=== PATIENT | male | born 1965 | race Hispanic/Latino ===

== ENCOUNTER 2018-07-24 13:32 | Inpatient (IN) | payer MEDICAID ==
[2018-07-24 13:46] VITALS: BMI 33.0
[2018-07-24] MEDS ORDERED: Oxycodone/Acetaminophen 5/325 mg Tab PO STA ×2 (14:07→17:40)
[2018-07-24] MEDS ORDERED: Oxycodone/Acetaminophen 5/325 mg Tab ONE ×2 (14:12→18:04)
--- NOTE | 2018-07-24 16:00 | C.PDOC ---
History Of Present Illness 53 year old male presents to the ED for evaluation of rectal pain, which began after he had a forced bowel movement two days ago. Patient denies history of hemorrhoids or prolapsed rectum. Patient denies any type of anal/rectal manip ulation or receiving anal intercourse. Time Seen by Provider: 07/24/18 14:02 Chief Complaint (Nursing): Male Genitourinary History Per: Patient History/Exam Limitations: no limitations Onset/Duration Of Symptoms: Days (2) Current Symptoms Are (Timing): Still Present Quality Of Discomfort: "Pain" Additional History Per: Patient Past Medical History Reviewed: Historical Data, Nursing Documentation, Vital Signs Vital Signs: Last Vital Signs Temp 98.6 F 07/24/18 13:36 Pulse 78 07/24/18 13:36 Resp 16 07/24/18 13:36 BP 122/80 07/24/18 13:36 Pulse Ox 98 07/24/18 13:36 - Medical History PMH: HTN, Hypercholesterolemia Surgical History: No Surg Hx Family History: States: Unknown Family Hx - Social History Hx Alcohol Use: No Hx Substance Use: No - Immunization History Hx Tetanus Toxoid Vaccination: No Hx Influenza Vaccination: No Hx Pneumococcal Vaccination: No Review Of Systems Gastrointestinal: Positive for: Rectal Pain Physical Exam - Physical Exam Appears: Non-toxic, No Acute Distress Skin: Normal Color, Warm, Dry Head: Atraumatic, Normacephalic Eye(s): bilateral: Normal Inspection Oral Mucosa: Moist Neck: Supple Chest: Symmetrical, No Deformity, No Tenderness Cardiovascular: Rhythm Regular Respiratory: Normal Breath Sounds Rectal: Other (prolapsed rectum by 2cm, pouting and tender ) Extremity: Normal ROM, Capillary Refill (less than 2 seconds ) Neurological/Psych: Oriented x3, Normal Speech, Normal Cognition ED Course And Treatment - Laboratory Results Result Diagrams: 07/27/18 11:10 07/27/18 11:10 O2 Sat by Pulse Oximetry: 98 (on RA) Pulse Ox Interpretation: Normal Progress Note: Percocet PO given. Medical Decision Making Medical Decision Making: failed digital reposition of Rectum in ED x 2 Adm for surgical intervention Disposition Doctor Will See Patient In The: Hospital Counseled Patient/Family Regarding: Studies Performed, Diagnosis - Disposition Disposition: HOSPITALIZED Disposition Time: 16:00 Condition: GOOD - Clinical Impression Clinical Impression: Rectal prolapse - Scribe Statement The provider has reviewed the documentation as recorded by the Scribe (Marysol Solomon) Provider Attestation: All medical record entries made by the Scribe were at my direction and person ally dictated by me. I have reviewed the chart and agree that the record accurately reflects my personal performance of the history, physical exam, medical decision making, and the department course for this patient. I have also personally directed, reviewed, and agree with the discharge instructions and disposition.
[2018-07-24 18:18] LABS: BASO # 0.1 K/uL (0.0-0.2); BASO % 1.4 % (0.0-2.0); EOS # 0.1 K/uL (0.0-0.7); EOS % 0.9 % (0.0-4.0); HEMOGLOBIN 14.1 g/dL (12.0-18.0); LYMPH # 1.5 K/uL (1.0-4.3); LYMPH % 19.7 % (20.0-40.0); MEAN CELL VOLUME 90.8 fL (80.0-94.0); MEAN CORPUSCULAR HEMOGLOBIN 30.8 pg (27.0-31.0); MEAN PLATELET VOLUME 8.7 fL (7.2-11.7); MONO # 0.8 K/uL (0.0-0.8); MONO % 10.4 % (0.0-10.0); NEUT # 5.3 K/uL (1.8-7.0); NEUT % 67.6 % (50.0-75.0); RBC 4.58 Mil/uL (4.40-5.90); RED CELL DISTRIBUTION WIDTH 13.8 % (11.5-14.5); WHITE BLOOD COUNT 7.8 K/uL (4.8-10.8)
--- NOTE | 2018-07-24 18:18 | CP.PCM.CON ---
<Sena Israel - Last Filed: 07/24/18 18:31> History of Present Illness - History of Present Illness History of Present Illness: This is a surgical consult note for Dr. Granado for hemorrhoidectomy. Pt is a 53M with PMHx with HTN and hypercholesterolemia that presents with prolapsed hemorrhoid. He says the problem began 2 days ago when he was straining on the toilet. He felt the sudden pain and he says it has been a constant 07/05. He denies radiation of pain and prior episode. He tried preparation H but says it did not help. Pt says he had been constipated for 3 days prior to the prolapse. He denies F/C, N/V, SOB, CP, headache, and numbness/tingling. PMHx: HTN, hypercholesterolemia SxHx: Heart catherization (Jun 2018) FamHx: grandmother - DM, father - lung and skin cancer ( at 54) SocHx: denies tobacco, alcohol, and drug use. Allergies: NKDA Review of Systems - Constitutional Constitutional: absent: Chills, Fever, Headache - Cardiovascular Cardiovascular: absent: Chest Pain, Dyspnea - Gastrointestinal Gastrointestinal: Constipation, Diarrhea. absent: Nausea, Vomiting Additional comments: After the prolapse, the pt reported having a bout of diarrhea. Past Patient History - Past Social History Smoking Status: Never Smoked - CARDIAC Hx Hypercholesterolemia: Yes Hx Hypertension: Yes - PSYCHIATRIC Hx Substance Use: No - SURGICAL HISTORY Hx Surgeries: No - ANESTHESIA Hx Anesthesia: No Meds Allergies/Adverse Reactions: Allergies Allergy/AdvReac Type Severity Reaction Status Date / Time No Known Allergies Allergy Unverified 07/24/18 13:45 Physical Exam - Constitutional Appears: Well - Head Exam Head Exam: NORMAL INSPECTION - Eye Exam Eye Exam: EOMI, Normal appearance, PERRL Pupil Exam: NORMAL ACCOMODATION, PERRL - ENT Exam ENT Exam: Mucous Membranes Moist, Normal Exam - Neck Exam Neck exam: Positive for: Normal Inspection - Respiratory Exam Respiratory Exam: NORMAL BREATHING PATTERN - Cardiovascular Exam Cardiovascular Exam: REGULAR RHYTHM - GI/Abdominal Exam GI & Abdominal Exam: Normal Bowel Sounds - Rectal Exam Rectal Exam: Hemorrhoids Additional comments: Non-reducing hemorrhoids. LL colume is thrombosed [id number]. R anterior [id number] , R posterior colume TTP. [id number] - Extremities Exam Extremities exam: Positive for: normal inspection - Back Exam Back exam: NORMAL INSPECTION - Neurological Exam Neurological exam: Alert, CN II-XII Intact, Normal Gait, Oriented x3, Reflexes Normal - Psychiatric Exam Psychiatric exam: Normal Affect, Normal Mood - Skin Skin Exam: Dry, Intact, Normal Color, Warm Results - Vital Signs Recent Vital Signs: Last Vital Signs Temp 98.0 F 07/24/18 17:22 Pulse 62 07/24/18 17:22 Resp 18 07/24/18 17:22 BP 127/76 07/24/18 17:22 Pulse Ox 98 07/24/18 17:22 - Labs Result Diagrams: 07/24/18 18:15 Assessment & Plan - Assessment and Plan (Free Text) Assessment: partially thrombosed prolapsed hemorrhoids. -OR tomorrow for hemorrhoidectomy -NPO -IVF DW Dr. Granado <Dickson Granado - Last Filed: 07/30/18 16:14> Results - Vital Signs Recent Vital Signs: Last Vital Signs Temp 98.2 F 07/27/18 15:30 Pulse 80 07/27/18 15:30 Resp 20 07/27/18 15:30 BP 121/78 07/27/18 15:30 Pulse Ox 96 07/27/18 15:30 - Labs Result Diagrams: 07/27/18 11:10 07/27/18 11:10 Attending/Attestation - Attestation I have personally seen and examined this patient.: Yes I have fully participated in the care of the patient.: Yes I have reviewed all pertinent clinical information: Yes Notes (Text): Pt was seen and examined at bedside Agree with above note and assessment 53 year old male with rectal bleeding and prolapsed hemorrhoids Rectal: Grade 4 Hemorrhoids with ulceration and thrombosis Labs and Radiology reviewed Ass: Grade 4 Hemorrhoids Plan: Lidocaine 5 % localy Sitz bath Stool softner Medical clearance for Hemorrhoidectomy Plan d.w pt in detail. Risk and benefit explained in detail.
[2018-07-24 18:27] LABS: INR 1.2; PROTHROMBIN TIME 13.1 SECONDS (9.7-12.2)
[2018-07-24] MEDS ORDERED: HYDROmorphone 0.5 mg/0.5 ml ISec IVP PRN (18:35)
[2018-07-24 18:44] LABS: BLOOD UREA NITROGEN 15 mg/dL (9-20); CALCIUM 8.9 mg/dl (8.6-10.4); GFR NON-AFRICAN AMERICAN > 60
[2018-07-24] MEDS ORDERED: Sodium Chloride 0.9% 1,000 ML IV SCH (18:45)
[2018-07-24 18:52] LABS: ALB/GLOB RATIO 1.5 (1.0-2.1); ALBUMIN 4.4 g/dL (3.5-5.0); ALT/SGPT 39 U/L (21-72); AST/SGOT 62 U/L (17-59)
[2018-07-24] MEDS: Sodium Chloride 0.9% 1,000 ML IV SCH (22:00)
[2018-07-24] MEDS: Lidocaine 5% Oint(35 gm) TOP SCH (22:01)
--- NOTE | 2018-07-24 22:09 | CP.PCM.HP ---
Past Patient History - Past Social History Smoking Status: Never Smoked - CARDIAC Hx Hypercholesterolemia: Yes Hx Hypertension: Yes - PSYCHIATRIC Hx Substance Use: No - SURGICAL HISTORY Hx Surgeries: No - ANESTHESIA Hx Anesthesia: No Meds Allergies/Adverse Reactions: Allergies Allergy/AdvReac Type Severity Reaction Status Date / Time No Known Allergies Allergy Unverified 07/24/18 13:45 Results - Vital Signs Recent Vital Signs: Last Vital Signs Temp 98.3 F 07/24/18 18:44 Pulse 55 L 07/24/18 18:44 Resp 18 07/24/18 18:44 BP 127/80 07/24/18 18:44 Pulse Ox 98 07/24/18 18:44 - Labs Result Diagrams: 07/24/18 18:15 07/24/18 18:15 Labs: Laboratory Results - last 24 hr 07/24/18 07/24/18 07/24/18 18:15 18:15 18:15 WBC 7.8 RBC 4.58 Hgb 14.1 Hct 41.6 MCV 90.8 MCH 30.8 MCHC 34.0 RDW 13.8 Plt Count 155 MPV 8.7 Neut % (Auto) 67.6 Lymph % (Auto) 19.7 L Loup % (Auto) 10.4 H Eos % (Auto) 0.9 Baso % (Auto) 1.4 Neut # (Auto) 5.3 Lymph # (Auto) 1.5 Loup # (Auto) 0.8 Eos # (Auto) 0.1 Baso # (Auto) 0.1 PT 13.1 H INR 1.2 APTT 27 Sodium 139 Potassium 4.9 Chloride 102 Carbon Dioxide 25 Anion Gap 17 BUN 15 Creatinine 0.9 Est GFR ( Amer) > 60 Est GFR (Non-Af Amer) > 60 Random Glucose 97 Calcium 8.9 Total Bilirubin 1.5 H AST 62 H ALT 39 Alkaline Phosphatase 62 Total Protein 7.4 Albumin 4.4 Globulin 2.9 Albumin/Globulin Ratio 1.5
[2018-07-25] MEDS: Lidocaine 5% Oint(35 gm) TOP SCH ×6 (01:45→21:21)
[2018-07-25] MEDS: Sodium Chloride 0.9% 1,000 ML IV SCH (03:15)
[2018-07-25 07:18] LABS: HEMOGLOBIN 13.8 g/dL (12.0-18.0); MEAN CELL VOLUME 90.9 fL (80.0-94.0); MEAN CORPUSCULAR HEMOGLOBIN 31.6 pg (27.0-31.0); MEAN CORPUSCULAR HGB CONC 34.8 g/dL (33.0-37.0); MEAN PLATELET VOLUME 9.2 fL (7.2-11.7); RBC 4.35 Mil/uL (4.40-5.90); RED CELL DISTRIBUTION WIDTH 13.9 % (11.5-14.5)
--- NOTE | 2018-07-25 08:06 | CP.PCM.PN ---
<Brendon Ann - Last Filed: 07/25/18 08:04> Subjective - Date & Time of Evaluation Date of Evaluation: 07/25/18 Time of Evaluation: 08:04 - Subjective Subjective: Gen Surg: Dr Granado Pt S&E. CAITLYNEO. Resting comfortably. Pain controlled. Plan for repair tomorrow. No BM since admission Objective - Vital Signs/Intake and Output Vital Signs (last 24 hours): Temp Pulse Resp BP Pulse Ox 98.5 F 58 L 20 104/60 97 07/25/18 07:59 07/25/18 07:59 07/25/18 07:59 07/25/18 07:59 07/25/18 07:59 Intake and Output: 07/25/18 07/25/18 06:59 18:59 Intake Total 1380 Balance 1380 - Medications Medications: Current Medications Enoxaparin Sodium (Lovenox) 40 mg SC DAILY [facility] Hydromorphone HCl (Dilaudid) 0.5 mg IVP Q4H PRN PRN Reason: Pain, moderate (4-7) Sodium Chloride (Sodium Chloride 0.9%) 1,000 mls @ 135 mls/hr IV .Q7H25M [facility] Last Admin: 07/25/18 03:15 Dose: 135 mls/hr Influenza Virus Vaccine (Fluzone Quad [id number]) 60 mcg IM .ONCE ONE Stop: 07/26/18 08:01 Lidocaine (Lidocaine 5%) 0 gm TOP Q4H [facility] Last Admin: 07/25/18 05:43 Dose: 1 applic Lisinopril (Zestril) 10 mg PO DAILY [facility] Metoprolol Succinate (Toprol Xl) 25 mg PO DAILY [facility] Pneumococcal Polyvalent Vaccine (Pneumovax 23 Vaccine) 0.5 ml IM .ONCE ONE Stop: 07/26/18 08:01 - Labs Labs: 07/25/18 07:10 07/24/18 18:15 PT 13.1 SECONDS (9.7-12.2) H 07/24/18 18:15 INR 1.2 07/24/18 18:15 APTT 27 SECONDS (21-34) 07/24/18 18:15 - Constitutional Appears: Non-toxic, No Acute Distress - ENT Exam ENT Exam: Mucous Membranes Moist - Respiratory Exam Respiratory Exam: absent: Respiratory Distress - Cardiovascular Exam Cardiovascular Exam: REGULAR RHYTHM. absent: Tachycardia - GI/Abdominal Exam GI & Abdominal Exam: Soft. absent: Distended, Tenderness - Rectal Exam Rectal Exam: Hemorrhoids Additional comments: 3 distinct piles, minimal thrombosis - Neurological Exam Neurological Exam: Alert, Awake, Oriented x3 Assessment and Plan - Assessment and Plan (Free Text) Assessment: 53M with prolapsed hemorrhoids Plan: plan for repair tomorrow in [place] NPO @ [place] hold a/c tomorrow stool softeners d/w Dr Vannesa Ann, PGY4 <Dickson Granado B - Last Filed: 07/30/18 16:16> Objective - Vital Signs/Intake and Output Vital Signs (last 24 hours): Temp Pulse Resp BP Pulse Ox 98.2 F 80 20 121/78 96 07/27/18 15:30 07/27/18 15:30 07/27/18 15:30 07/27/18 15:30 07/27/18 15:30 - Labs Labs: 07/27/18 11:10 07/27/18 11:10 PT 13.1 SECONDS (9.7-12.2) H 07/24/18 18:15 INR 1.2 07/24/18 18:15 APTT 27 SECONDS (21-34) 07/24/18 18:15 Attending/Attestation - Attestation I have personally seen and examined this patient.: Yes I have fully participated in the care of the patient.: Yes I have reviewed all pertinent clinical information, including history, physical exam and plan: Yes Notes (Text): Pt was seen and examined at bedside Agree with above note and assessment Pt with prolapsed hemorrhoids OR for Hemorrhoidectomy tomorrow NPO, IVF Consent Plan d.w pt in detail. Risk and benefit explained in detail.
[2018-07-25 08:29] LABS: ALB/GLOB RATIO 1.5 (1.0-2.1); ALBUMIN 3.8 g/dL (3.5-5.0); ALT/SGPT 45 U/L (21-72); AST/SGOT 41 U/L (17-59); BLOOD UREA NITROGEN 17 mg/dL (9-20); CALCIUM 8.5 mg/dl (8.6-10.4); GFR NON-AFRICAN AMERICAN > 60
--- NOTE | 2018-07-25 09:35 | RAD ---
Date of service: 07/25/2018 HISTORY: pre-op eval COMPARISON: 11/02/2012 FINDINGS: LUNGS: Interval triangular low-density opacity at the right cardio phrenic junction-medial right lung base noted this may represent a prominent fat pad. However it is not appreciated as such on prior study. Consider PA and lateral view further clarification. Elsewhere lungs appear clear. PLEURA: No significant pleural effusion identified, no pneumothorax apparent. CARDIOVASCULAR: No aortic atherosclerotic calcification present. Normal cardiac size. No pulmonary vascular congestion. OSSEOUS STRUCTURES: No significant abnormalities. VISUALIZED UPPER ABDOMEN: Normal. OTHER FINDINGS: None. IMPRESSION: Interval triangular low-density opacity-right cardio phrenic junction-possible prominent cardiophrenic fat pad here. As this is not appreciated as such on the prior study, consider follow-up PA and lateral view for clarification.
[2018-07-25] MEDS: Sodium Chloride 0.45% 1,000 ML IV SCH ×2 (09:50→14:23)
[2018-07-25] MEDS ORDERED: Enoxaparin 40 mg Syringe SC SCH ×2 (10:00)
[2018-07-25] MEDS ORDERED: Metoprolol Succinate 25 mg XL Tab PO SCH (10:00)
--- NOTE | 2018-07-25 10:21 | HP ---
CHIEF COMPLAINT: Rectal mass. HISTORY OF PRESENT ILLNESS: This is 53-year-old male with history of hypertension and hyperlipidemia. He is compliant with his diet, medication, and followup. He had a cardiac catheterization done earlier this year, which was benign. He is compliant with his diet, medication, and followup, and he has been straining with his stools, and this morning, he pushed his stool hard and he felt a large lump in his rectum. (00:34) and he was hospitalized. He denies any rectal bleeding, melena, or hematochezia. He denies any history of hemoptysis or hematemesis. He denies any polyuria, polydipsia, or polyphagia. He denies any hematuria or pyuria. He denies any sneezing, itchy eyes, or itchy nose. There is no history of trauma, fall, or loss of consciousness. No history of seizure-like activity. PAST MEDICAL HISTORY: Hypertension and hyperlipidemia. SURGICAL HISTORY: Cardiac cath earlier this month, negative. FAMILY HISTORY: Grandmother, diabetes. Father, lung and skin cancer. SOCIAL HISTORY: He denies any smoking or drinking. ALLERGIES: UNKNOWN ALLERGY. CURRENT MEDICATIONS: At home, he is on metoprolol, aspirin, and Zestoretic. PHYSICAL EXAMINATION: GENERAL: A middle-aged male in no acute distress. VITAL SIGNS: Blood pressure 127/80, pulse 55, respiratory rate 18, and temperature 98.3. SKIN: No bruising. No purpura. No petechia. Has tattoo. HEENT: Atraumatic, normocephalic. Negative pallor. Negative jaundice. Extraocular movements are intact. NECK: Supple. No JVD. No lymph node. No thyromegaly. CHEST WALL: Bilateral symmetrical expansion. LUNGS: Clear. No rales. No rhonchi. CARDIOVASCULAR SYSTEM: S1, S2 regular. . RECTAL: Rectal mass which is nonbleeding. CENTRAL NERVOUS SYSTEM: Awake, alert, oriented x3. ASSESSMENT: 1. Rectal mass, etiology unclear. 2. Hypertension. 3. Hyperlipidemia. PLAN: Admit. Detailed orders written. Seen and examined. Chun Fernandez MD
--- NOTE | 2018-07-25 12:23 | CARD ---
APPROVED REPORT Date of service: 07/24/2018 EKG Measurement Heart [id number] [id number] <Conclusion> Normal sinus rhythm Normal ECG
--- NOTE | 2018-07-25 22:29 | CP.PCM.PN ---
Subjective - Subjective Subjective: dictated Objective - Vital Signs/Intake and Output Vital Signs (last 24 hours): Temp Pulse Resp BP Pulse Ox 98 F 53 L 20 126/68 97 07/25/18 15:49 07/25/18 15:49 07/25/18 15:49 07/25/18 15:49 07/25/18 15:49 Intake and Output: 07/25/18 07/26/18 18:59 06:59 Intake Total 1380 Balance 1380 - Medications Medications: Current Medications Docusate Sodium (Colace) 100 mg PO BID [facility] Last Admin: 07/25/18 17:32 Dose: 100 mg Enoxaparin Sodium (Lovenox) 40 mg SC DAILY [facility] Last Admin: 07/25/18 09:53 Dose: 40 mg Hydromorphone HCl (Dilaudid) 0.5 mg IVP Q4H PRN PRN Reason: Pain, moderate (4-7) Sodium Chloride (Sodium Chloride 0.45%) 1,000 mls @ 50 mls/hr IV .Q20H [facility] Last Admin: 07/25/18 14:23 Dose: 50 mls/hr Cefazolin Sodium 500 mg/ (Sodium Chloride) 50 mls @ 100 mls/hr IVPB Q8H [facility]; Protocol Last Admin: 07/25/18 21:11 Dose: 100 mls/hr Influenza Virus Vaccine (Fluzone Quad [id number]) 60 mcg IM .ONCE ONE Stop: 07/26/18 08:01 Lactulose (Enulose) 20 gm PO HS [facility] Last Admin: 07/25/18 21:17 Dose: 20 gm Lidocaine (Lidocaine 5%) 0 gm TOP Q4H [facility] Last Admin: 07/25/18 21:21 Dose: 1 applic Lisinopril (Zestril) 10 mg PO DAILY [facility] Pneumococcal Polyvalent Vaccine (Pneumovax 23 Vaccine) 0.5 ml IM .ONCE ONE Stop: 07/26/18 08:01 - Labs Labs: 07/25/18 07:10 07/25/18 07:10 PT 13.1 SECONDS (9.7-12.2) H 07/24/18 18:15 INR 1.2 07/24/18 18:15 APTT 27 SECONDS (21-34) 07/24/18 18:15
[2018-07-26] MEDS: Lidocaine 5% Oint(35 gm) TOP SCH ×6 (01:45→20:50)
--- NOTE | 2018-07-26 02:53 | PN ---
DATE: 07/25/2018 SUBJECTIVE: The patient, Ho Flowers, is medically stable. PHYSICAL EXAMINATION: VITAL SIGNS: Blood pressure 126/68, pulse 53, respiratory rate 20, and temperature 98. LUNGS: Clear. CVS: S1 and S2, regular. ABDOMEN: Soft. ASSESSMENT: 1. Hemorrhoid. 2. Hypertension. PLAN: Medically stable for OR in a.m. Chun Fernandez MD
[2018-07-26] MEDS: Sodium Chloride 0.45% 1,000 ML IV SCH (04:15)
[2018-07-26] MEDS ORDERED: Pneumococcal 23-Valent Vaccine IM ONE (08:00)
[2018-07-26] MEDS ORDERED: Influenza Vaccine 60 MCG/0.5 ML SYR (3 yr & up) IM ONE (08:00)
[2018-07-26] MEDS ORDERED: Enoxaparin 40 mg Syringe SC SCH (10:00)
[2018-07-26] MEDS ORDERED: Propofol 10 mg/ml Inj (20 ML) ONE (11:35)
[2018-07-26] MEDS ORDERED: Midazolam 2 MG/2 ML VIAL ONE (11:35)
[2018-07-26] MEDS ORDERED: Rocuronium 10 mg/ml (5 ml) ONE (11:37)
[2018-07-26] MEDS ORDERED: Lidocaine/Epinephrine 1% 1:100000 10 ML IJ ONE (11:49)
[2018-07-26] MEDS ORDERED: Bupivacaine 0.25% 20 ML INJ IJ ONE (11:49)
[2018-07-26] MEDS ORDERED: ceFAZolin IV 1 gm in Dextrose 1 GM/50 ML BAG IVPB ONE ×2 (12:05→13:22)
[2018-07-26] MEDS ORDERED: Neostigmine Methylsulfate 3mg/3ml Syringe IV ONE (13:19)
[2018-07-26] MEDS ORDERED: HYDROmorphone 0.5 mg/0.5 ml ISec IVP PRN (13:46)
--- NOTE | 2018-07-26 13:51 | PCM.SURG1 ---
Surgeon's Initial Post Op Note - Surgeon's Notes Surgeon: Dr[facility] Attendant: MYLES Berrios; Lydia Rcihard, PGY2; Carola Ramos OMS3 Type of Anesthesia: General Endo, Local Pre-Operative Diagnosis: thrombosed hemorrhoids Operative Findings: large, thrombosed hemorrhoids in 2 columns Post-Operative Diagnosis: same Operation Performed: 2 column hemorrhoidectomy, Examination under anesthesia Specimen/Specimens Removed: right lateral hemorroid and left lateral hemorrhoid Estimated Blood Loss: EBL {In ML}: 20 Drains Used: No Drains Post-Op Condition: Fair Date of Surgery/Procedure: 07/26/18 Time of Surgery/Procedure: 12:00
[2018-07-26] MEDS: HYDROmorphone 0.5 mg/0.5 ml ISec IVP PRN ×2 (14:12→14:30)
[2018-07-26] MEDS: metroNIDAZOLE IV 500 mg/100 ml 500 MG/100 ML BAG IVPB SCH ×2 (14:43→22:12)
[2018-07-26] MEDS ORDERED: Lactated Ringer's 1,000 ML IV ONE (15:00)
[2018-07-26] MEDS: POLYETHYLENE GLYCOL 3350 17 GM/Dose PACKET PO SCH (17:30)
--- NOTE | 2018-07-26 21:32 | CP.PCM.PN ---
Subjective - Subjective Subjective: dictated Objective - Vital Signs/Intake and Output Vital Signs (last 24 hours): Temp Pulse Resp BP Pulse Ox 98.6 F 62 12 151/86 H 100 07/26/18 15:15 07/26/18 15:15 07/26/18 15:15 07/26/18 15:15 07/26/18 15:15 Intake and Output: 07/26/18 07/27/18 18:59 06:59 Intake Total 1375 Balance 1375 - Medications Medications: Current Medications Acetaminophen (Tylenol 325mg Tab) 650 mg PO Q6 [facility] Last Admin: 07/26/18 17:26 Dose: 650 mg Docusate Sodium (Colace) 100 mg PO TID [facility] Last Admin: 07/26/18 17:26 Dose: 100 mg Enoxaparin Sodium (Lovenox) 40 mg SC DAILY [facility] Last Admin: 07/25/18 09:53 Dose: 40 mg Hydromorphone HCl (Dilaudid) 0.5 mg IVP Q4H PRN PRN Reason: Pain, severe (8-10) Stop: 07/27/18 06:00 Cefazolin Sodium 500 mg/ (Sodium Chloride) 50 mls @ 100 mls/hr IVPB Q8H [facility]; Protocol Last Admin: 07/26/18 19:28 Dose: 100 mls/hr Metronidazole (Flagyl) 500 mg in 100 mls @ 100 mls/hr IVPB Q8H [facility]; Protocol Last Admin: 07/26/18 14:43 Dose: 100 mls Lactulose (Enulose) 20 gm PO HS PRN PRN Reason: Constipation Lidocaine (Lidocaine 5%) 0 gm TOP Q4H [facility] Last Admin: 07/26/18 20:50 Dose: Not Given Lisinopril (Zestril) 10 mg PO DAILY [facility] Last Admin: 07/26/18 10:03 Dose: Not Given Polyethylene Glycol (Miralax) 17 gm PO BID [facility] Last Admin: 07/26/18 17:30 Dose: 17 gm Tramadol HCl (Ultram) 50 mg PO TID PRN PRN Reason: Pain, moderate (4-7) - Labs Labs: 07/25/18 07:10 07/25/18 07:10 PT 13.1 SECONDS (9.7-12.2) H 07/24/18 18:15 INR 1.2 07/24/18 18:15 APTT 27 SECONDS (21-34) 07/24/18 18:15
[2018-07-27 01:02] VITALS: RESP 20
[2018-07-27] MEDS: Lidocaine 5% Oint(35 gm) TOP SCH ×2 (01:45→06:00)
--- NOTE | 2018-07-27 02:44 | PN ---
DATE: 07/26/2018 SUBJECTIVE: The patient, Lionel, is postop. He has urinary retention, and I will do a straight cath on him. Other than that, he is feeling better. PHYSICAL EXAMINATION: VITAL SIGNS: Blood pressure 151/86, pulse 62, respiratory rate 12, and temperature 98.6. LUNGS: Clear. CARDIOVASCULAR SYSTEM: S1, S2 regular. ABDOMEN: Soft. ASSESSMENT: 1. Status post hemorrhoidectomy. 2. Hypertension. 3. Postoperative urinary retention. PLAN: Straight cath. Monitor the patient. Chun Fernandez MD
[2018-07-27] MEDS: metroNIDAZOLE IV 500 mg/100 ml 500 MG/100 ML BAG IVPB SCH ×2 (06:00→14:18)
[2018-07-27] MEDS: POLYETHYLENE GLYCOL 3350 17 GM/Dose PACKET PO SCH (09:30)
--- NOTE | 2018-07-27 09:40 | CP.PCM.PN ---
<Lydia Richard - Last Filed: 07/27/18 10:41> Subjective - Date & Time of Evaluation Date of Evaluation: 07/27/18 Time of Evaluation: 06:50 - Subjective Subjective: General surgery progress note for Dr. Granado pt seen and examined at bedside this AM. Pt had urinary retention after the operation and had a straight catheter placed at bedside last night. Patient was able to pass small amounts of urine overnight but had a large amount of retained urine this AM as well and a straight cath produced 900cc's of urine. Patient has some rectal pain, but denies any fevers, chills, or abdominal pain Objective - Vital Signs/Intake and Output Vital Signs (last 24 hours): Temp Pulse Resp BP Pulse Ox 98.5 F 62 20 126/76 96 07/27/18 07:27 07/27/18 07:27 07/27/18 07:27 07/27/18 07:27 07/27/18 07:27 Intake and Output: 07/27/18 07/27/18 06:59 18:59 Intake Total 1300 650 Output Total 1500 1150 Balance -200 -500 - Medications Medications: Current Medications Acetaminophen (Tylenol 325mg Tab) 650 mg PO Q6 PRN PRN Reason: Pain, moderate (4-7) Docusate Sodium (Colace) 100 mg PO TID [facility] Last Admin: 07/27/18 09:31 Dose: 100 mg Enoxaparin Sodium (Lovenox) 40 mg SC DAILY [facility] Last Admin: 07/25/18 09:53 Dose: 40 mg Cefazolin Sodium 500 mg/ (Sodium Chloride) 50 mls @ 100 mls/hr IVPB Q8H [facility]; Protocol Last Admin: 07/27/18 02:30 Dose: 100 mls/hr Metronidazole (Flagyl) 500 mg in 100 mls @ 100 mls/hr IVPB Q8H [facility]; Protocol Last Admin: 07/27/18 06:00 Dose: 100 mls/hr Lactulose (Enulose) 20 gm PO HS PRN PRN Reason: Constipation Lidocaine (Lidocaine 5%) 0 gm TOP Q4H [facility] Last Admin: 07/27/18 06:00 Dose: Not Given Lisinopril (Zestril) 10 mg PO DAILY [facility] Last Admin: 07/27/18 09:31 Dose: 10 mg Polyethylene Glycol (Miralax) 17 gm PO BID [facility] Last Admin: 07/27/18 09:30 Dose: 17 gm Tamsulosin HCl (Flomax) 0.4 mg PO DAILY [facility] Tramadol HCl (Ultram) 50 mg PO TID PRN PRN Reason: Pain, severe (8-10) - Labs Labs: 07/25/18 07:10 07/25/18 07:10 PT 13.1 SECONDS (9.7-12.2) H 07/24/18 18:15 INR 1.2 07/24/18 18:15 APTT 27 SECONDS (21-34) 07/24/18 18:15 - Constitutional Appears: Well, Non-toxic, No Acute Distress - Head Exam Head Exam: ATRAUMATIC, NORMOCEPHALIC - Eye Exam Eye Exam: Normal appearance. absent: Conjunctival injection, Scleral icterus - ENT Exam ENT Exam: Mucous Membranes Moist, Normal Oropharynx - Respiratory Exam Respiratory Exam: NORMAL BREATHING PATTERN. absent: Accessory Muscle Use, Respiratory Distress - Cardiovascular Exam Cardiovascular Exam: RRR - GI/Abdominal Exam GI & Abdominal Exam: Soft. absent: Distended - Rectal Exam Additional comments: surgical incisions well approximated with sutures, no active bleeding or drainage, no erythema - Extremities Exam Extremities Exam: absent: Calf Tenderness, Pedal Edema, Tenderness - Neurological Exam Neurological Exam: Alert, Awake, Oriented x3 - Psychiatric Exam Psychiatric exam: Normal Affect, Normal Mood - Skin Skin Exam: Dry, Normal Color, Warm Assessment and Plan - Assessment and Plan (Free Text) Assessment: 53M POD#1 s/p hemorrhoidectomy Plan: Continue triple stool softener regimen Continue full liquid diet for a week Continue PO pain medication as needed Encourage ambulation Continue antibiotics Administered flomax this AM--will monitor UOP this AM. If patient has persistent retention may consider Urology consult Will continue to follow Discussed with Dr. Vannesa Richard, PGY2 <Dickson Granado - Last Filed: 07/30/18 16:17> Objective - Vital Signs/Intake and Output Vital Signs (last 24 hours): Temp Pulse Resp BP Pulse Ox 98.2 F 80 20 121/78 96 07/27/18 15:30 07/27/18 15:30 07/27/18 15:30 07/27/18 15:30 07/27/18 15:30 - Labs Labs: 07/27/18 11:10 07/27/18 11:10 PT 13.1 SECONDS (9.7-12.2) H 07/24/18 18:15 INR 1.2 07/24/18 18:15 APTT 27 SECONDS (21-34) 07/24/18 18:15 Attending/Attestation - Attestation I have personally seen and examined this patient.: Yes I have fully participated in the care of the patient.: Yes I have reviewed all pertinent clinical information, including history, physical exam and plan: Yes Notes (Text): Pt was seen and examined at bedside Agree with above note and assessment Pt is s/p Hemorrhoidectomy Passing urine now Start Flomax Local wound care DC plan C.w stool softner Plan d.w pt in detail. Risk and benefit explained in detail.
[2018-07-27 11:21] LABS: BASO % 0.4 % (0.0-2.0); EOS # 0.1 K/uL (0.0-0.7); EOS % 0.8 % (0.0-4.0); HEMOGLOBIN 13.3 g/dL (12.0-18.0); LYMPH # 1.2 K/uL (1.0-4.3); LYMPH % 17.8 % (20.0-40.0); MEAN CELL VOLUME 90.9 fL (80.0-94.0); MEAN CORPUSCULAR HEMOGLOBIN 31.2 pg (27.0-31.0); MEAN CORPUSCULAR HGB CONC 34.4 g/dL (33.0-37.0); MEAN PLATELET VOLUME 9.2 fL (7.2-11.7); MONO # 0.6 K/uL (0.0-0.8); MONO % 9.1 % (0.0-10.0); NEUT # 4.7 K/uL (1.8-7.0); NEUT % 71.9 % (50.0-75.0); RBC 4.27 Mil/uL (4.40-5.90); RED CELL DISTRIBUTION WIDTH 14.1 % (11.5-14.5); WHITE BLOOD COUNT 6.5 K/uL (4.8-10.8)
[2018-07-27 11:36] LABS: BLOOD UREA NITROGEN 8 mg/dL (9-20); CALCIUM 8.8 mg/dl (8.6-10.4); GFR NON-AFRICAN AMERICAN > 60
[2018-07-27] MEDS ORDERED: Potassium Chloride 20 mEq ER Tab PO ONE (14:00)
[2018-07-27 15:59] VITALS: BP 121/78; PULSE 80; TEMP 98.2
--- NOTE | 2018-07-27 16:47 | CP.PCM.PN ---
Subjective - Date & Time of Evaluation Date of Evaluation: 07/27/18 Time of Evaluation: 11:00 - Subjective Subjective: alert and orientedx3, no acute pain or bleeding. Objective - Vital Signs/Intake and Output Vital Signs (last 24 hours): Temp Pulse Resp BP Pulse Ox 98.2 F 80 20 121/78 96 07/27/18 15:30 07/27/18 15:30 07/27/18 15:30 07/27/18 15:30 07/27/18 15:30 Intake and Output: 07/27/18 07/27/18 06:59 18:59 Intake Total 1300 1210 Output Total 1500 1150 Balance -200 60 - Labs Labs: 07/27/18 11:10 07/27/18 11:10 PT 13.1 SECONDS (9.7-12.2) H 07/24/18 18:15 INR 1.2 07/24/18 18:15 APTT 27 SECONDS (21-34) 07/24/18 18:15 Assessment and Plan - Assessment and Plan (Free Text) Assessment: 53 yr old male, s/p hemorrhoidectomy yesterday, seen and examined. Cleared by surgery, patient is lert and orientedx3, no acute pain, tolerating liquid diet. Discussed with DR Fernandez, plan to discharge home today. Advised to continue liquid diet for 1 week and follow up with the surgery and PMD in 1 week. Plan: AWAKE, ALERT, NO COMPLAINTS OF ACUTE PAIN, AMBULATING WELL, NAD.
--- NOTE | 2018-07-27 22:09 | CP.PCM.DIS ---
Provider - Provider Date of Admission: 07/26/18 21:32 Attending physician: Chun Fernandez MD Hospital Course - Lab Results Lab Results: Most Recent Lab Values WBC 6.5 K/uL (4.8-10.8) 07/27/18 11:10 RBC 4.27 Mil/uL (4.40-5.90) L 07/27/18 11:10 Hgb 13.3 g/dL (12.0-18.0) 07/27/18 11:10 Hct 38.8 % (35.0-51.0) 07/27/18 11:10 MCV 90.9 fL (80.0-94.0) 07/27/18 11:10 MCH 31.2 pg (27.0-31.0) H 07/27/18 11:10 MCHC 34.4 g/dL (33.0-37.0) 07/27/18 11:10 RDW 14.1 % (11.5-14.5) 07/27/18 11:10 Plt Count 143 K/uL (130-400) 07/27/18 11:10 MPV 9.2 fL (7.2-11.7) 07/27/18 11:10 Neut % (Auto) 71.9 % (50.0-75.0) 07/27/18 11:10 Lymph % (Auto) 17.8 % (20.0-40.0) L 07/27/18 11:10 Bollinger % (Auto) 9.1 % (0.0-10.0) 07/27/18 11:10 Eos % (Auto) 0.8 % (0.0-4.0) 07/27/18 11:10 Baso % (Auto) 0.4 % (0.0-2.0) 07/27/18 11:10 Neut # (Auto) 4.7 K/uL (1.8-7.0) 07/27/18 11:10 Lymph # (Auto) 1.2 K/uL (1.0-4.3) 07/27/18 11:10 Bollinger # (Auto) 0.6 K/uL (0.0-0.8) 07/27/18 11:10 Eos # (Auto) 0.1 K/uL (0.0-0.7) 07/27/18 11:10 Baso # (Auto) 0.0 K/uL (0.0-0.2) 07/27/18 11:10 PT 13.1 SECONDS (9.7-12.2) H 07/24/18 18:15 INR 1.2 07/24/18 18:15 APTT 27 SECONDS (21-34) 07/24/18 18:15 Sodium 136 mmol/L (132-148) 07/27/18 11:10 Potassium 3.5 mmol/L (3.6-5.2) L 07/27/18 11:10 Chloride 102 mmol/L (98-107) 07/27/18 11:10 Carbon Dioxide 26 mmol/L (22-30) 07/27/18 11:10 Anion Gap 12 (10-20) 07/27/18 11:10 BUN 8 mg/dL (9-20) L 07/27/18 11:10 Creatinine 0.9 mg/dL (0.8-1.5) 07/27/18 11:10 Est GFR ( Amer) > 60 07/27/18 11:10 Est GFR (Non-Af Amer) > 60 07/27/18 11:10 Random Glucose 115 mg/dL (75-110) H 07/27/18 11:10 Calcium 8.8 mg/dl (8.6-10.4) 07/27/18 11:10 Phosphorus 2.4 mg/dL (2.5-4.5) L 07/25/18 07:10 Magnesium 2.3 mg/dL (1.6-2.3) 07/25/18 07:10 Total Bilirubin 1.2 mg/dL (0.2-1.3) 07/25/18 07:10 AST 41 U/L (17-59) 07/25/18 07:10 ALT 45 U/L (21-72) 07/25/18 07:10 Alkaline Phosphatase 72 U/L (38-126) 07/25/18 07:10 Total Protein 6.4 g/dL (6.3-8.3) 07/25/18 07:10 Albumin 3.8 g/dL (3.5-5.0) 07/25/18 07:10 Globulin 2.6 gm/dL (2.2-3.9) 07/25/18 07:10 Albumin/Globulin Ratio 1.5 (1.0-2.1) 07/25/18 07:10 Discharge Exam - Head Exam Head Exam: ATRAUMATIC, NORMOCEPHALIC Discharge Plan - Discharge Medications Prescriptions: RX: Tamsulosin [Flomax] 0.4 mg PO DAILY #30 cap - Follow Up Plan Condition: GOOD Disposition: HOME/ ROUTINE Instructions: Rectal Prolapse in Adults, Tamsulosin Referrals: Chun Fernandez MD [Staff Provider] - Dickson Granado MD [Staff Provider] -
--- NOTE | 2018-07-28 05:01 | DS ---
DISCHARGE DIAGNOSES: 1. Hemorrhoids. 2. Hypertension. HOSPITALIZATION COURSE: This is a 53-year-old male with a history of obesity and hypertension. He came in because of rectal pain and swelling, found to have hemorrhoid, underwent hemorrhoidectomy. Postoperatively, he had urinary retention which was treated with straight catheterization and then the patient started peeing on his own, and he is being discharged with outpatient followup. Condition upon discharge is stable. PHYSICAL EXAMINATION: VITAL SIGNS: Blood pressure 121/78, pulse 80, respiratory rate 20, temperature 98.2 LUNGS: Clear. No rales. No rhonchi. CARDIOVASCULAR SYSTEM: S1 and S2, regular. ABDOMEN: Soft. LABORATORY DATA: WBC 6.5, hemoglobin 13.3, hematocrit 38.8, platelets 143. Sodium 133, potassium 3.5, chloride 102, bicarb 26, BUN , creatinine 0.9. ASSESSMENT: 1. Hemorrhoids. 2. Hypertension. 3. Obesity. CONDITION UPON DISCHARGE: Stable. Chun Frenandez MD
--- NOTE | 2018-07-30 05:04 | OP ---
PROCEDURE DATE: 07/26/2018 PREOPERATIVE DIAGNOSES: 1. Prolapsed, ulcerated hemorrhoid. 2. Severe constipation. POSTOPERATIVE DIAGNOSES: 1. Prolapsed, ulcerated hemorrhoid. 2. Severe constipation. PROCEDURES DONE: 1. Two-column hemorrhoidectomy with advancement flap. 2. Examination under anesthesia. SURGEON: Dickson Granado MD ANESTHESIA: General endotracheal tube anesthesia. ESTIMATED BLOOD LOSS: Around 20 mL. DRAINS: None. PATHOLOGY: The left lateral and right lateral hemorrhoid was sent for the pathology. COMPLICATIONS: None. INTRAOPERATIVE FINDINGS: The patient had prolapsed all four columns of hemorrhoid with ulceration as well as thrombosed hemorrhoid. On examination under anesthesia, the patient was found to have ulceration deep in the rectal mucosa, and the mucosa of the rectum was advanced in order to close the wound. DESCRIPTION OF PROCEDURE: On intraoperative steps, this 53-year-old male was diagnosed with prolapsed, thrombosed hemorrhoid, and the patient was consented for the hemorrhoidectomy and examination under anesthesia. Brought to the OR, placed supine on the operating table. After induction of the anesthesia, the patient was placed in a prone jackknife position. The perineal area was prepped and draped after taping the butt cheek apart. An elliptical incision was made surrounding the right lateral hemorrhoid. Dissection was carried down deep up to the rectal mucosa and the pedicle was ligated, and now the two-layer closure of the mucosa was done, one with 2-0 PDS as well as the 4-0 Vicryl interrupted sutures. Now, the elliptical incision was made surrounding the left lateral hemorrhoid, and the dissection was carried down deep up to the rectal mucosa. The pedicle was ligated doubly with 0 Vicryl, and the wound was closed after advancing the rectal mucosal flap in order to close the wound properly and the wound was closed with 2-0 PDS as well as 4-0 Vicryl interrupted suture, and dry sterile dressing was applied. The patient tolerated the procedure well. Count of the instrument and gauze was correct. There was no apparent complication. On examination under anesthesia part, the patient was found to have ulceration and thrombosed hemorrhoids. They were all excised. The patient was extubated in the OR and sent to the postanesthesia care unit in stable condition. There laureano no apparent complications. Dickson Granado MD [facility] # [id number]
[2018-07-30 23:15] VITALS: O2SAT 98
== END 2018-07-27 16:00 | disposition home or self-care (01) | DRG 226 ==
LOC: C.ER 13:32 → C.9E 17:56 → C.3T 18:14 → OBSVTOIN 07-26 21:32
PROVIDERS: ADMIT Internal Medicine; ATTEND Internal Medicine
PROC: 0DQP7ZZ Repair Rectum, Via Natural or Artificial Opening (ICD-10-PCS; 2018-07-26)
PROC: 06BY0ZC Excision of Hemorrhoidal Plexus, Open Approach (ICD-10-PCS; principal; 2018-07-26 15:00)
DX: K64.3 Fourth degree hemorrhoids (principal); I10 Essential (primary) hypertension; K62.3 Rectal prolapse; K62.6 Ulcer of anus and rectum; K64.5 Perianal venous thrombosis; K59.00 Constipation, unspecified; E66.9 Obesity, unspecified; E78.5 Hyperlipidemia, unspecified; E78.00 Pure hypercholesterolemia, unspecified; Z80.8 Family history of malignant neoplasm of other organs or systems; Z83.3 Family history of diabetes mellitus